=== PATIENT | female | born 1950 | race Caucasian/White ===

== ENCOUNTER 2020-09-24 15:00 | Emergency (ER) | payer MEDICARE ==
[~2020-09-24] VITALS: Ht 157.5 cm; Wt 81.8 kg
[2020-09-24] MEDS ORDERED: OMEPRAZOLE DR20 MG PO (15:24)
[2020-09-24] MEDS ORDERED: SIMVASTATIN20 MG PO (15:24)
[2020-09-24] MEDS ORDERED: LISINOPRIL10 MG PO (15:25)
[2020-09-24] MEDS ORDERED: LEVOTHYROXIN100 MCG PO (15:25)
[2020-09-24] MEDS ORDERED: FLUOXETINE10 M2 PO (15:26)
[2020-09-24] MEDS ORDERED: ASPIRIN81 MG PO (15:26)
[2020-09-24 15:27] LABS: URINE BILIRUBIN - DIPSTICK NEGATIVE (NEGATIVE); URINE BLOOD DIPSTICK MODERATE (NEGATIVE); URINE COLOR YELLOW; URINE GLUCOSE - DIPSTICK NEGATIVE (NEGATIVE); URINE KETONE NEGATIVE (NEGATIVE); URINE PH 6.5 (4.5-8.0); URINE PROTEIN - DIPSTICK TRACE mg/dL (NEG-TRACE)
[2020-09-24 15:29] LABS: URINE LEUK ESTERASE MODERATE (NEGATIVE); URINE NITRITE - DIPSTICK POSITIVE (Negative)
[2020-09-24 15:39] LABS: URINE SQUAMOUS EPITHELIAL CELL FEW EPI/hpf (0-FEW); URINE WBC 20-50 WBC/hpf (0-5)
[2020-09-24 15:49] VITALS: BP 159/71
[2020-09-24] MEDS ORDERED: PYRIDIUM200 MG PO (15:53)
[2020-09-24] MEDS ORDERED: KEFLEX500 MG PO (15:53)
== END 2020-09-24 16:02 | disposition home or self-care (01) ==
LOC: ED 15:00
DX: N39.0 Urinary tract infection, site not specified (principal); B96.20 Unspecified Escherichia coli [E. coli] as the cause of diseases classified elsewhere; I10 Essential (primary) hypertension; K21.9 Gastro-esophageal reflux disease without esophagitis; F32.9 Major depressive disorder, single episode, unspecified; E78.5 Hyperlipidemia, unspecified